=== PATIENT | female | born 1970 | race Caucasian/White ===

== ENCOUNTER 2019-09-25 09:30 | Emergency (ER) | payer BC, OTHER ==
[~2019-09-25] VITALS: Ht 170.2 cm; Wt 75.3 kg
--- NOTE | 2019-09-25 09:38 | NUR ---
Patient to ER bed 7 to gown for evaluation. Side rails up. Report given to [facility] THOMAS.
[2019-09-25 09:39] VITALS: BP_SYST 146
--- NOTE | 2019-09-25 09:45 | NUR ---
pt had sudden onset of LLQ abd pain yesterday at 0600. She was on her way to see her PMD, however, the pain was so intense so she decided to come to the ER.
--- NOTE | 2019-09-25 09:48 | NUR ---
ER at bedside examining patient.
--- NOTE | 2019-09-25 10:00 | NUR ---
medicated the pt w/ Toradol and Zofran per MD order will reassess
--- NOTE | 2019-09-25 10:30 | NUR ---
Patient transported to radiology via , accompanied by trade economist.
[2019-09-25] MEDS ORDERED: KETOROLAC TROMETHAMINE 60 MG/2 ML VIAL IM ONE (10:45)
[2019-09-25] MEDS ORDERED: ONDANSETRON 4 MG ODT TAB PO ONE (10:45)
[2019-09-25] MEDS ORDERED: MAGNESIUM CITRATE 300 ML ORAL SOLUTION PO ONE (10:45)
--- NOTE | 2019-09-25 12:16 | NUR ---
Patient given written and verbal discharge instructions and verbalizes understanding. ER MD discussed with patient the results and treatment provided. Patient in stable condition. ID arm band removed. Rx of Miralax, Ibuprofen,Zofran,Mineral oil given. Patient educated on pain management and to follow up with PMD. Pain Scale 2/10 tolerable for patient. Opportunity for questions provided and answered. Medication side effect fact sheet provided.
[2019-09-25 12:20] VITALS: BP_SYST 146
== END 2019-09-25 12:20 | disposition home or self-care (01) ==
LOC: SED 09:30
DX: R10.32 Left lower quadrant pain (principal)
CPT/HCPCS: 74021; 96372; 99283; J1885; Q0162

== ENCOUNTER 2022-01-25 09:15 | Emergency (ER) | payer OTHER ==
[~2022-01-25] VITALS: Ht 170.2 cm; Wt 74.8 kg
[2022-01-25 09:18] VITALS: BP_SYST 119
--- NOTE | 2022-01-25 09:18 | NUR ---
Patient to ER bed 6 to gown for evaluation. Side rails up. Report given to
--- NOTE | 2022-01-25 09:18 | NUR ---
ER at bedside examining patient.
[2022-01-25] MEDS ORDERED: ONDANSETRON HCL 4 MG/2 ML VIAL IVP ONE (09:30)
[2022-01-25] MEDS ORDERED: MORPHINE 4 MG INJ. 4 MG/ML VIAL IVP ONE (09:30)
--- NOTE | 2022-01-25 09:50 | NUR ---
pateint presents to the ER with wrist pain and a visible deformity on the Left distal wrist. Upon assessment the patients distal Left wrist has obvious deformity and is a 10/10 pain. patient states she fell down a set of stairs and tried to catch herself from falling. Distal pulses palpable. Rrespiratory is WNL. Skin is intact. Pupils PERRLA. vital signs WNL
[2022-01-25] MEDS ORDERED: KETAMINE 30 MG/3 ML SYRINGE IVP ONE (10:00)
[2022-01-25] MEDS ORDERED: PROPOFOL 200MG/ 20ML VIAL (DIPRIVAN) IV ONE (10:00)
[2022-01-25] MEDS ORDERED: HYDR-3927 PO (11:24)
[2022-01-25] MEDS ORDERED: IBUP-1969 PO (11:24)
[2022-01-25] MEDS ORDERED: KETOROLAC TROMETHAMINE 15 MG VIAL IVP ONE (12:15)
--- NOTE | 2022-01-25 12:35 | NUR ---
pts. arm placed in sling for support
--- NOTE | 2022-01-25 12:41 | NUR ---
Patient and given written and verbal discharge instructions and verbalizes understanding. ER discussed with patient the results and treatment provided. Patient in stable condition. ID arm band removed. IV catheter removed intact and dressing applied, no active bleeding. Rx of Erbacon and Motrin given. Patient educated on pain management and to follow up with PMD. Pain Scale 3. Opportunity for questions provided and answered. Medication side effect fact sheet provided.
[2022-01-25 12:43] VITALS: BP_SYST 134
== END 2022-01-25 12:41 | disposition home or self-care (01) ==
LOC: SED 09:15
DX: S52.502A Unspecified fracture of the lower end of left radius, initial encounter for closed fracture (principal); I10 Essential (primary) hypertension; Z79.899 Other long term (current) drug therapy; W10.9XXA Fall (on) (from) unspecified stairs and steps, initial encounter; Y93.89 Activity, other specified; Y92.89 Other specified places as the place of occurrence of the external cause; Y99.8 Other external cause status
CPT/HCPCS: 25605; 73080; 73100; 73110; 96374; 96375; 99152; 99285; J1885; J2270; J2405; J2704